=== PATIENT | male | born 1975 | race Caucasian/White ===

== ENCOUNTER 2016-11-24 13:53 | Inpatient (IN) | payer BC, OTHER ==
[2016-11-24 14:01] VITALS: BMI 24.4
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
[2016-11-24] MEDS ORDERED: LABETALOL HCL 5 MG/1 ML (100MG/20 ML VIAL) IVPUSH ONE (15:29)
[2016-11-24] MEDS ORDERED: HEPARIN NA (PORCINE) 5,000 UNITS/ML 1ML VIAL ONE ×2 (15:34→19:37)
[2016-11-24] MEDS ORDERED: LIDOCAINE HCL 1%, 10 MG/ML (20ML VIAL) ONE (15:34)
[2016-11-24 15:46] LABS: BASOPHIL 0.7 % (0-2.0); EOSINOPHIL 0.9 % (0-4.5); MCH 26.5 pg (25.7-33.7); MCHC 31.4 g/dl (32.0-35.9); MEAN CELL VOLUME 84.3 fl (80-96); MEAN PLT VOLUME 8.7 fl (7.5-11.1); NEUTROPHILS 66.4 % (42.8-82.8); PLATELET COUNT 272 K/MM3 (134-434); RDW 14.5 % (11.9-15.9); WHITE BLOOD COUNT 11.2 K/mm3 (4.0-10.0)
[2016-11-24 15:58] LABS: INR 1.04 (0.82-1.09); PROTHROMBIN TIME (PATIENT) 11.5 SEC (9.98-11.88)
[2016-11-24 16:09] LABS: ALBUMIN 3.7 g/dl (3.4-5.0); BILIRUBIN,TOTAL 0.6 mg/dL (0.2-1.0); CALCIUM 8.6 mg/dL (8.5-10.1); TOT PROT 7.9 g/dl (6.4-8.2)
[2016-11-24 16:31] LABS: CREATININE 13.2 mg/dL (0.7-1.3)
[2016-11-24] MEDS ORDERED: MIDAZOLAM HCL 2 MG/2 ML SINGLE DOSE VIAL ONE ×3 (17:23→18:00)
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
[2016-11-24] MEDS ORDERED: PROPOFOL 20 ML ONE (17:54)
[2016-11-24] MEDS ORDERED: methylPREDNISolone NA SUCC 125 MG/2 ML VIAL ONE (17:56)
--- NOTE | 2016-11-24 19:29 | PN ---
Progress Note (short form) - Note Progress Note: i was called by ER dr Doss earlier that pt is in ER and he needs vascular sx; I came to the hospital from my office around 6 pm but pt was already in OR; I returned to postop around 7.30 but pt still in OR. D/w staff to page me when he comes out of OR.
[2016-11-24] MEDS ORDERED: VASOPRESSIN 20 UNITS/ML VIAL IV ONE (19:32)
[2016-11-24] MEDS ORDERED: NITROGLYCERIN 50 MG/10 ML VIAL IVPB ONE (19:57)
[2016-11-24] MEDS ORDERED: ACETAMINOPHEN 325 MG TABLET (FP) PO PRN (20:16)
[2016-11-24] MEDS ORDERED: IBUPROFEN 600 MG TABLET (FP) PO PRN (20:20)
--- NOTE | 2016-11-24 20:23 | OP ---
Operative Note - Note: Operative Date: 11/24/16 Pre-Operative Diagnosis: Ischemic left arm Operation: Open thrombectomy of brachial artery. Angiogram and angioplasty of brachial artery Findings: Dilated brachial artery filled with organized thrombus Stenosis of brachial artery bypass Patent radial artery to hand Post-Operative Diagnosis: Same as Pre-op Surgeon: Dimitry Angelo Hydrodynamicist: Lesly Tamayo Anesthesiologist/SUPPOSITORY MOLDING MACHINE OPERATOR: Jose Roberto Dyer Anesthesia: General Estimated Blood Loss (mls): 100
[2016-11-24] MEDS ORDERED: MINOXIDIL 10 MG TABLET PO SCH (20:30)
[2016-11-24] MEDS ORDERED: DEXTROSE 5%-0.45% SALINE 1,000 ML IV SCH (20:30)
[2016-11-24] MEDS ORDERED: ONDANSETRON 4 MG/2 ML VIAL IVPUSH PRN (20:32)
[2016-11-24] MEDS ORDERED: SODIUM CHLORIDE 1,000 ML IV SCH (20:45)
[2016-11-24] MEDS ORDERED: oxyCODONE HCL 5 MG TABLET PO ONE (21:42)
[2016-11-24] MEDS ORDERED: LOSARTAN POTASSIUM 50 MG TABLET (FP) PO SCH (23:15)
[2016-11-24] MEDS ORDERED: LABETALOL HCL 200 MG TABLET (FP) PO SCH (23:30)
[2016-11-24] MEDS ORDERED: HEPARIN NA (PORCINE) 5,000 UNITS/ML 1ML VIAL IVPUSH ONE (23:36)
[2016-11-24] MEDS ORDERED: HEPARIN NA (PORCINE) 5,000 UNITS/ML 1ML VIAL IVPUSH PRN ×2 (23:36)
[2016-11-24] MEDS ORDERED: HEPARIN INFUSION - 500 ML IV SCH (23:45)
[2016-11-25] MEDS: SEVELAMER CARBONATE 800 MG TAB (FP) PO SCH ×3 (07:59→17:29)
--- NOTE | 2016-11-25 08:17 | PN ---
Progress Note (short form) - Note Progress Note: POD 1 Mild pain Wound dry hand warm, no weakness On IV Heparin Start Eliquis before discharge Discussed need for new brachial bypass to be scheduled in next month. Problem List - Problems (1) Ischemia of left upper extremity Code(s): I99.8 - OTHER DISORDER OF CIRCULATORY SYSTEM (2) ESRD (end stage renal disease) Code(s): N18.6 - END STAGE RENAL DISEASE
--- NOTE | 2016-11-25 09:10 | OP ---
DATE OF OPERATION: 11/24/2016 SURGEON: Dimitry Angelo MD GIS INSTRUCTOR: STEPHANIE Tamayo PROCEDURES: Open thrombectomy left brachial artery. Angiogram left brachial artery. Angioplasty left brachial artery. Retrograde cannulation left radial artery with ultrasound guidance PREOPERATIVE DIAGNOSIS: Ischemic left hand with thrombosed brachial artery bypass. POSTOPERATIVE DIAGNOSIS: Ischemic left hand with thrombosed brachial artery bypass. ANESTHESIA: General. ANESTHESIOLOGIST: Jose Roberto Dyer MD OPERATIVE FINDINGS: There was severe ectasia and dilatation of the left brachial artery extending down to the takeoff of the bypass graft to the radial and ulnar arteries. The bypass graft was occluded. There was reconstitution of the junction of the radial and ulnar arteries in the forearm with runoff to both vessels. OPERATIVE PROCEDURE: Following routine patient identification, with site and side verification, general anesthesia was induced. The left arm was prepped with ChloraPrep. Xylocaine was infiltrated in the skin over the dilated brachial artery in the mid upper arm. A transverse incision was made and carried down through the subcutaneous tissues using cautery for hemostasis. The artery was sharply mobilized and encircled with vessel loops. The patient was systemically heparinized. Transverse arteriotomy was made after placing clamps proximally and distally. A number 5 Garfield catheter was then used to perform thrombectomy of the distal brachial artery, with retrieval of a large amount of organized the thrombus. A 7-[place] sheath was placed into the vessel and attempt made to pass a wire through the proximal anastomosis into the vein graft. This was not feasible. Duplex imaging was used to identify the radial artery proximal to the wrist, and a micropuncture needle advanced into the artery under direct ultrasound guidance. A micropuncture wire was advanced proximally in the radial artery and then the inner cannula of the 5-[place] sheath passed over the wire. A V18 wire was then passed proximally and a Quick-Cross catheter used for support. The wire was passed proximally through the anastomosis into the vein graft and into the brachial artery, wherein it was retrieved through the arteriotomy. The catheter was then passed prograde over the wire and the wire was exchanged and passed distally into the forearm and the catheter removed from the wrist. Pressure was applied until bleeding ceased. Using the wire access, 3-mm and 4-mm angioplasty balloons were used to dilate the vein graft and restore patency. Additional thrombectomy was then performed to remove residual clot from the area. Repeat imaging showed patent proximal and distal anastomoses with runoff to the radial artery. The arteriotomy was then closed with a running suture of 6-0 Prolene. Clamps were removed. A micropuncture needle was then used to access the brachial artery distal to the arteriotomy site, and a 5-[place] catheter placed over the wire. Angiography was then performed to document patency of the bypass graft. There appeared to be spasm in the proximal radial artery and no visualization of the ulnar artery. Nitroglycerin 200 mcg was injected into the artery and this helped to reduce the spasm. There was good distal flow in the radial artery, with an intact palmar arch and retrograde filling of the ulnar artery. The needle was removed from the vessel and pressure applied until bleeding ceased. The surgical wound was closed with interrupted suture of 3-0 Vicryl and skin korin. A sterile dressing was applied, and the patient was taken to the recovery room, where there was a strong Doppler signal in both the radial and ulnar arteries. Huber [id number]
[2016-11-25] MEDS ORDERED: ENOXAPARIN NA (PORCINE) 80 MG/0.8 ML DISP.SYRIN SQ SCH (10:00)
[2016-11-25] MEDS ORDERED: CHOLECALCIFEROL (VITAMIN D3) 1,000 UNIT TABLET (FP) PO SCH (10:00)
[2016-11-25] MEDS ORDERED: APIXABAN 5 MG TABLET PO SCH (10:00)
[2016-11-25] MEDS ORDERED: RANITIDINE HCL 150 MG TABLET (FP) PO SCH (10:15)
[2016-11-25] MEDS ORDERED: PARICALCITOL 5 MCG/ML VIAL IVPUSH ONE (11:20)
[2016-11-25] MEDS ORDERED: HEPARIN NA (PORCINE) 5,000 UNITS/ML 1ML VIAL IVPUSH ONE (11:20)
--- NOTE | 2016-11-25 11:23 | EKG ---
Test Reason : Blood Pressure : / mmHG Vent. Rate : 069 BPM Atrial Rate : 069 BPM P-R Int : 156 ms QRS Dur : 090 ms QT Int : 430 ms P-R-T Axes : 052 057 054 degrees QTc Int : 460 ms NORMAL SINUS RHYTHM POSSIBLE LEFT ATRIAL ENLARGEMENT NONSPECIFIC ST AND T WAVE ABNORMALITY PROLONGED QT ABNORMAL ECG WHEN COMPARED WITH ECG OF 02-SEP-2015 12:14, NO SIGNIFICANT CHANGE WAS FOUND Confirmed by MANUELA CARROLL MD ([id number]) on 11/25/2016 11:23:09 AM Referred By: Confirmed By:MANUELA CARROLL MD
--- NOTE | 2016-11-25 11:29 | CONSULT ---
Consult - text type - Consultation Consultation Note: Renal Consult for ESRD on HD This is a 41 year old Gentleman with PMhx of ESRD on HD with prior renal transplant in 2006, Hypertension, GERD who presented from home with complaints of left arm pain and found to have occlusion of his left brachial artery bypass now s/p thrombectomy by Vascular Sx. Pt has prior AVF on left arm that was complicated by anuerysm formation that required a bypass. Pt currently gets dialysis via right forarm AVF. Pt complains of mild pain at the AVF site. No sob , chest pain, abd pain, N/V/D. Last dialysis was Monday. PMhx: as above Allergies: NKDA Family hx: NC Social Hx: No T/A/D ROS: as per HPI, all other pertinent ros negative Home Meds: Medication Instructions Recorded Minoxidil [Loniten -] 10 mg PO ASDIR 12/15/11 Sevelamer Carbonate [Renvela -] 3 tab PO TID 02/03/15 Acetaminophen [Tylenol] 650 mg PO Q4H PRN 07/06/15 Losartan Potassium [Cozaar -] 50 mg PO ASDIR 07/29/15 Labetalol HCl [Normodyne -] 300 mg PO ASDIR 09/02/15 Cholecalciferol (Vitamin D3) 1,000 unit PO DAILY 04/19/16 [Vitamin D] Apixaban [Eliquis] 5 mg PO BID #60 tablet 11/25/16 Vital Signs Temperature 98.3 F 11/25/16 09:00 Pulse Rate 66 11/25/16 09:00 Respiratory Rate 17 11/25/16 09:00 Blood Pressure 151/72 11/25/16 09:00 O2 Sat by Pulse Oximetry (%) 100 11/24/16 22:00 Intake & Output 11/22/16 11/23/16 11/24/16 11/25/16 23:59 23:59 23:59 23:59 Intake Total 300 Output Total 0 Balance 300 Weight 175 lb 181 lb 1 oz Gen: NAD, awake and alert HEENT: NC/AT, MMM, No JVD CVS: RRR, No M/R Lungs: CTA, no rales or wheeze Abd: soft NT/ND Ext: Left upper arm with dressing, faint pulse distally. Right forearm AVF + thrill and bruit. Neuro: AAOx3, no focal defects CBC, BMP 11/24/16 15:05 11/24/16 15:05 Current Medications Acetaminophen (Tylenol -) 650 mg PO Q4H PRN PRN Reason: PAIN OR FEVER Last Admin: 11/25/16 07:59 Dose: 650 mg Apixaban (Eliquis -) 5 mg PO BID [facility] Cholecalciferol (Vitamin D3 -) 1,000 unit PO DAILY [facility] Fentanyl (Sublimaze Injection -) 50 mcg IVPUSH [id number] PRN PRN Reason: PAIN Stop: 11/27/16 20:33 Last Admin: 11/24/16 21:35 Dose: 50 mcg Heparin Sodium (Porcine) (Heparin -) 2,500 unit IVPUSH ONCE ONE Stop: 11/25/16 11:21 Labetalol HCl (Normodyne -) 300 mg PO SuTuThSa@1000,2200 [facility] Last Admin: 11/24/16 23:21 Dose: 300 mg Losartan Potassium (Cozaar -) 50 mg PO SuTuThSa@1000 [facility] Last Admin: 11/24/16 23:21 Dose: 50 mg Minoxidil (Loniten -) 10 mg PO ASDIR [facility] Paricalcitol (Zemplar -) 2 mcg IVPUSH ONCE ONE Stop: 11/25/16 11:21 Ranitidine HCl (Zantac -) 150 mg PO BID [facility] Last Admin: 11/25/16 10:16 Dose: 150 mg Sevelamer Carbonate (Renvela -) 2,400 mg PO TIDCM [facility] Last Admin: 11/25/16 07:59 Dose: 2,400 mg A/P 41 year old Gentleman with PMhx of ESRD on HD with prior renal transplant in 2006, Hypertension, GERD who presented from home with complaints of left arm pain and found to have occlusion of his left brachial artery bypass now s/p thrombectomy by Vascular Sx. #Left Bracihial artery bypass thrombosis s/p thrombectomy by Vascular Sx on Eliquis pain control PRN #ESRD on HD for dialysis today: 4hrs, 2k bath with UF to dry weight dose all meds for intermittent HD #Hypertension BP acceptable Continue Labetalol, Losartan, Minoxidil #Renal Osteodystrophy Continue Renvela TID with meals Thank you Will follow Noman Pulliam DO
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
--- NOTE | 2016-11-25 12:44 | DS ---
Physical Examination Vital Signs: Vital Signs Temperature 98.3 F 11/25/16 09:00 Pulse Rate 66 11/25/16 09:00 Respiratory Rate 17 11/25/16 09:00 Blood Pressure 151/72 11/25/16 09:00 O2 Sat by Pulse Oximetry (%) 100 11/24/16 22:00 Findings/Remarks: in bed s/p LUE surgery; per pt and staff was cleared by vascular sx to be DC home after HD; d/w pt DC instructions see H&P from today also Constitutional: Yes: No Distress, Calm Eyes: Yes: Conjunctiva Clear HENT: Yes: Atraumatic Neck: Yes: Supple Cardiovascular: Yes: Regular Rate and Rhythm Respiratory: Yes: CTA Bilaterally Gastrointestinal: Yes: Soft. No: Distention, Tenderness Musculoskeletal: No: Joint Stiffness, Joint Swelling Extremities: No: Cold, Cool Edema: No Peripheral Pulses WNL: Yes Integumentary: No: Pressure Ulcer, Venous Stasis Changes Neurological: Yes: WNL, Alert, Oriented ...Motor Strength: WNL Psychiatric: Yes: WNL, Alert, Oriented. No: Agitated Discharge Summary Reason For Visit: ANEURYSM OF ARTERIOVENOUS FISTULA Current Active Problems Aneurysm of arteriovenous fistula (Acute) ESRD (end stage renal disease) (Acute) Ischemia of left upper extremity (Acute) Procedures: Principal: LUE AVF thrombosis s/p surgery Other Procedures: eliquis per surgery;. HD per renal;. BP control Hospital Course: improved with above DC home, f/u as advised; d.w pt and staff; remove LEJ line and make sure no local bleed before DC Condition: Stable - Instructions Diet, Activity, Other Instructions: Remove bandage Monday and wash with soap and water. f/u PCP and vascular suregry dr Angelo in 1-2 weeks HD per renal RTER if recurrent sx avoid local trauma or rough playing with his children (pt said he was wrestling with his son before his AVF thrombosed) cardiology f/u outpt nonspecific T waves changes on EKG (asymptomatic, no CP/SOB /MARTIN currently) d/w pt and staff, scripts ordered Referrals: Hany Coulter MD [Primary Care Provider] - Dimitry Angelo MD [Staff Physician] - 2 Weeks Disposition: HOME - Home Medications Comprehensive Discharge Medication List: Ambulatory Orders Minoxidil [Loniten -] 10 mg PO ASDIR 12/15/11 Sevelamer Carbonate [Renvela -] 3 tab PO TID 02/03/15 Acetaminophen [Tylenol] 650 mg PO Q4H PRN 07/06/15 Losartan Potassium [Cozaar -] 50 mg PO ASDIR 07/29/15 Cholecalciferol (Vitamin D3) [Vitamin D3] 1,000 unit PO DAILY 04/19/16 Apixaban [Eliquis -] 5 mg PO BID #0 tablet 11/25/16 Apixaban [Eliquis] 5 mg PO BID #60 tablet 11/25/16 Labetalol HCl [Normodyne -] 300 mg PO ASDIR #60 tablet 11/25/16 Ranitidine [Zantac -] 150 mg PO BID tablet 11/25/16
--- NOTE | 2016-11-25 12:47 | PN ---
Progress Note (short form) - Note Progress Note: Anesthesia postop note 41 y/o M s/p GA for open thrombectomy, upper extremity POD#1, vss, aaox3, to be discharged today No anesthesia complications.
[2016-11-25 13:54] LABS: CALCIUM 8.2 mg/dL (8.5-10.1)
[2016-11-25 14:24] LABS: CREATININE 15.1 mg/dL (0.7-1.3)
[2016-11-25 18:33] VITALS: BP 142/70; PULSE 75; TEMP 98.2
[2016-11-26 06:06] LABS: HEP B SURFACE AB Reactive (.)
--- NOTE | 2016-11-30 13:33 | SURG ---
Surgery Candle Making Supervisor Note Candle Making Supervisor: Lesly Tamayo PA-C Date of Service: 11/24/16 Diagnosis: Ischemic left arm Procedure: Open thrombectomy of brachial artery. Angiogram and angioplasty of brachial artery I was present for the entirety of the operative procedure. For further detail, please refer to operative report. Visit type - Case Type Case Type: ED Admission - New patient This patient is new to me today: Yes Date on this admission: 11/24/16
== END 2016-11-25 18:25 | disposition home or self-care (01) | DRG 252 ==
LOC: JER 13:53 → JASUSAT 16:41 → J6S 22:27 → JASUSAT 22:28 → J6S 22:28
PROVIDERS: ADMIT Internal Medicine; ATTEND Surgery
PROC: 03780ZZ Dilation of Left Brachial Artery, Open Approach (ICD-10-PCS; 2016-11-24)
PROC: B31JYZZ Fluoroscopy of Left Upper Extremity Arteries using Other Contrast (ICD-10-PCS; 2016-11-24)
PROC: 03C80ZZ Extirpation of Matter from Left Brachial Artery, Open Approach (ICD-10-PCS; principal; 2016-11-24 17:00)
PROC: 5A1D60Z (ICD-10-PCS; 2016-11-25)
DX: T82.868A Thrombosis due to vascular prosthetic devices, implants and grafts, initial encounter (principal); N18.6 End stage renal disease; I12.0 Hypertensive chronic kidney disease with stage 5 chronic kidney disease or end stage renal disease; Y83.9 Surgical procedure, unspecified as the cause of abnormal reaction of the patient, or of later complication, without mention of misadventure at the time of the procedure; Z99.2 Dependence on renal dialysis; K21.9 Gastro-esophageal reflux disease without esophagitis; I99.8 Other disorder of circulatory system; N25.0 Renal osteodystrophy
CPT/HCPCS: 36415; 71010-TC; 76001-TC; 80048; 80053; 85025; 85610; 85730; 86704; 86706; 86708; 86803; 86850; 86900; 86901; 87340; 93005; 93010; 94760; 99285-25; J1644

== ENCOUNTER 2017-08-25 15:27 | Emergency (ER) | payer BC, OTHER ==
[2017-08-25 15:35] VITALS: BMI 25.1
[2017-08-25] MEDS ORDERED: METOCLOPRAMIDE HCL INJECTION 10 MG/2 ML VIAL IVPUSH ONE (17:00)
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
[2017-08-25] MEDS ORDERED: METOCLOPRAMIDE HCL INJECTION 10 MG/2 ML VIAL ONE (17:35)
[2017-08-25 17:57] LABS: BASOPHIL 0.9 % (0-2.0); EOSINOPHIL 1.1 % (0-4.5); MCH 27.6 pg (25.7-33.7); MCHC 32.8 g/dl (32.0-35.9); MEAN CELL VOLUME 84.3 fl (80-96); MEAN PLT VOLUME 9.7 fl (7.5-11.1); PLATELET COUNT 288 K/MM3 (134-434); RDW 14.7 % (11.9-15.9); WHITE BLOOD COUNT 12.9 K/mm3 (4.0-10.0)
[2017-08-25] MEDS ORDERED: ACETAMINOPHEN/CAFFEINE/BUTALBITAL 1 TAB PO ONE (17:57)
[2017-08-25] MEDS ORDERED: ACETAMINOPHEN/CAFFEINE/BUTALBITAL 1 TAB ONE (18:10)
[2017-08-25 18:21] LABS: ALBUMIN 3.8 g/dl (3.4-5.0); ANION GAP 15 (8-16); CALCIUM 9.4 mg/dL (8.5-10.1); CO2 22 mmol/L (21-32); GLUCOSE,RANDOM 88 mg/dL (74-106); MAGNESIUM 2.2 mg/dL (1.8-2.4); SGOT/AST 22 U/L (15-37); SGPT/ALT 23 U/L (12-78)
[2017-08-25 18:28] LABS: ALK PHOS 175 U/L (45-117); BILIRUBIN,TOTAL 0.7 mg/dL (0.2-1.0); TOT PROT 8.7 g/dl (6.4-8.2)
[2017-08-25 18:31] LABS: INR 1.12 (0.82-1.09); PROTHROMBIN TIME (PATIENT) 12.3 SEC (9.98-11.88)
[2017-08-25 18:33] LABS: ACTIVATED PTT 34.5 SECONDS (26.9-34.4)
[2017-08-25 18:47] LABS: CREATININE 8.4 mg/dL (0.7-1.3)
--- NOTE | 2017-08-25 21:20 | PDOC ---
*Physical Exam - Vital Signs Last Vital Signs Temp Pulse Resp BP Pulse Ox 98.2 F 78 18 109/41 98 08/25/17 18:48 08/25/17 18:48 08/25/17 18:48 08/25/17 18:48 08/25/17 18:48 <Mariana Maki - Last Filed: 08/25/17 21:31> - Vital Signs Last Vital Signs Temp Pulse Resp BP Pulse Ox 98.2 F 78 18 109/41 98 08/25/17 18:48 08/25/17 18:48 08/25/17 18:48 08/25/17 18:48 08/25/17 18:48 <ReshmadionicioAshtyn - Last Filed: 08/25/17 21:46> ED Treatment Course - LABORATORY CBC & Chemistry Diagram: 08/25/17 17:50 08/25/17 17:50 - ADDITIONAL ORDERS Additional order review: Laboratory Results 08/25/17 08/25/17 17:50 17:50 PT with INR 12.30 H INR 1.12 PTT (Actin FS) 34.5 H Sodium 135 L Potassium 4.0 Chloride 98 Carbon Dioxide 22 Anion Gap 15 BUN 19 H D Creatinine 8.4 H* Creat Clearance w eGFR 7.06 Random Glucose 88 Calcium 9.4 Magnesium 2.2 D Total Bilirubin 0.7 AST 22 ALT 23 Alkaline Phosphatase 175 H Total Protein 8.7 H Albumin 3.8 08/25/17 17:50 RBC 5.08 MCV 84.3 MCHC 32.8 RDW 14.7 MPV 9.7 Neutrophils % 74.0 Lymphocytes % 13.0 Monocytes % 11.0 H Eosinophils % 1.1 Basophils % 0.9 - Medications Given in the ED: ED Medications Discontinued Medications Generic Name Dose Route Start Last Admin Trade Name Freq PRN Reason Stop Dose Admin Acetaminophen/Butalbital/Caffeine 1 tablet 08/25/17 17:57 08/25/17 18:13 Fioricet - PO 08/25/17 17:58 1 tablet ONCE ONE Administration Diphenhydramine HCl 12.5 mg 08/25/17 17:00 08/25/17 17:34 Benadryl Injection - IVPUSH 08/25/17 17:01 12.5 mg ONCE ONE Administration Metoclopramide HCl 10 mg 08/25/17 17:00 08/25/17 17:34 Reglan Injection - IVPUSH 08/25/17 17:01 10 mg ONCE ONE Administration <Mariana Maki - Last Filed: 08/25/17 21:31> - LABORATORY CBC & Chemistry Diagram: 08/25/17 17:50 08/25/17 17:50 - ADDITIONAL ORDERS Additional order review: Laboratory Results 08/25/17 10 17:50 17:50 PT with INR 12.30 H INR 1.12 PTT (Actin FS) 34.5 H Sodium 135 L Potassium 4.0 Chloride 98 Carbon Dioxide 22 Anion Gap 15 BUN 19 H D Creatinine 8.4 H* Creat Clearance w eGFR 7.06 Random Glucose 88 Calcium 9.4 Magnesium 2.2 D Total Bilirubin 0.7 AST 22 ALT 23 Alkaline Phosphatase 175 H Total Protein 8.7 H Albumin 3.8 08/25/17 17:50 RBC 5.08 MCV 84.3 MCHC 32.8 RDW 14.7 MPV 9.7 Neutrophils % 74.0 Lymphocytes % 13.0 Monocytes % 11.0 H Eosinophils % 1.1 Basophils % 0.9 - Medications Given in the ED: ED Medications Discontinued Medications Generic Name Dose Route Start Last Admin Trade Name Freq PRN Reason Stop Dose Admin Acetaminophen/Butalbital/Caffeine 1 tablet 08/25/17 17:57 08/25/17 18:13 Fioricet - PO 08/25/17 17:58 1 tablet ONCE ONE Administration Diphenhydramine HCl 12.5 mg 08/25/17 17:00 08/25/17 17:34 Benadryl Injection - IVPUSH 08/25/17 17:01 12.5 mg ONCE ONE Administration Metoclopramide HCl 10 mg 08/25/17 17:00 08/25/17 17:34 Reglan Injection - IVPUSH 08/25/17 17:01 10 mg ONCE ONE Administration <Ashtyn Ruiz - Last Filed: 08/25/17 21:46> Medical Decision Making - Medical Decision Making 08/25/17 21:20 Dr. Hany Coulter was paged and notified via phone service. 08/25/17 21:23 Dr. Greco was called and case was discussed with Dr. Ruiz. [facility] will be called for the pt. [facility] was called at 21:32, Doctor carton stapler for Neurosurgery will give us a call back. <Mariana Maki - Last Filed: 08/25/17 21:31> - Medical Decision Making 08/25/17 21:17 42 yo male with h/o migraines, esrd here wtih headache today at dialysis which he attributed to his migraines. pt signed out to me by dr rider at 7 pm awaiting MRI. MRI c/w ct finding of a 7.4 patent anuerysm anterior [place], no signs of bleed on ct head. d/w pt regarding findings. pt unwilling to have LP. told will have to follow up with a vascular surgeon. paged dr. Greco, dr coulter. overall states headache is improved. 08/25/17 21:45 d/w carton stapler nuerosurgery, pt will require managment of anuerysm. uncapable at [facility]. recommend transfer. d/w carton stapler nuerosurgeon at [facility] Dr. Joseph, will have pt transferred to ED there for further evaluation and or management. d/w dr coulter, who is aware of plan of care. <Ashtyn Ruiz - Last Filed: 08/25/17 21:46> *DC/Admit/Observation/Transfer <Mariana Maki - Last Filed: 08/25/17 21:31> <Ashtyn Ruiz - Last Filed: 08/25/17 21:46> Diagnosis at time of Disposition: Headache, Cerebral aneurysm - Discharge Dispostion Disposition: TRANSFER ACUTE CARE/OTHER HOSP - Referrals Referrals: Hany Coulter MD [Primary Care Provider] - - Patient Instructions - Post Discharge Activity
[2017-08-25 22:33] VITALS: BP 113/83; PULSE 82; TEMP 98.1
--- NOTE | 2017-09-01 09:22 | EKG ---
Test Reason : Blood Pressure : / mmHG Vent. Rate : 069 BPM Atrial Rate : 069 BPM P-R Int : 158 ms QRS Dur : 090 ms QT Int : 436 ms P-R-T Axes : 066 066 072 degrees QTc Int : 467 ms NORMAL SINUS RHYTHM POSSIBLE LEFT ATRIAL ENLARGEMENT LEFT VENTRICULAR HYPERTROPHY ABNORMAL ECG WHEN COMPARED WITH ECG OF 17-JAN-2017 10:28, NO SIGNIFICANT CHANGE WAS FOUND Confirmed by MANUELA CARROLL MD ([id number]) on 09/01/2017 9:22:05 AM Referred By: Confirmed By:MANUELA CARROLL MD
== END 2017-08-25 22:30 | disposition short-term general hospital (02) ==
LOC: JER 15:27
PROC: 3E033GC Introduction of Other Therapeutic Substance into Peripheral Vein, Percutaneous Approach (ICD-10-PCS; principal; 2017-08-25)
DX: I67.1 Cerebral aneurysm, nonruptured (principal); R51 Headache; I10 Essential (primary) hypertension; I12.0 Hypertensive chronic kidney disease with stage 5 chronic kidney disease or end stage renal disease; N18.6 End stage renal disease; N17.9 Acute kidney failure, unspecified; Z99.2 Dependence on renal dialysis
CPT/HCPCS: 36415; 70450-TC; 70544-TC; 71010-TC; 80053; 83735; 85025; 85610; 85730; 93005; 93010; 99285-25

== ENCOUNTER 2017-12-22 11:03 | Emergency (ER) | payer OTHER, BC ==
[2017-12-22 11:19] VITALS: BP 109/87; PULSE 102; TEMP 98.2; BMI 27.2
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
[2017-12-22 13:41] LABS: BASO % 0.7 % (0-2.0); EOS % 1.2 % (0-4.5); HEMATOCRIT 42.5 % (35.4-49); HEMOGLOBIN 13.7 GM/dL (11.7-16.9); LYMPH % 12.8 % (8-40); MCH 27.6 pg (25.7-33.7); MCHC 32.1 g/dl (32.0-35.9); MEAN CELL VOLUME 85.9 fl (80-96); MEAN PLT VOLUME 8.6 fl (7.5-11.1); MONO % 13.5 % (3.8-10.2); NEUT % 71.8 % (42.8-82.8); PLATELET COUNT 215 K/MM3 (134-434); RBC 4.95 M/mm3 (4.00-5.60); RDW 14.6 % (11.9-15.9); WHITE BLOOD COUNT 10.2 K/mm3 (4.0-10.0)
[2017-12-22 13:58] LABS: INR 0.97 (0.82-1.09)
--- NOTE | 2017-12-22 14:22 | PDOC ---
Attending Attestation - HPI HPI: 12/22/17 17:33 The patient is a 42 year old male with a significant PMH of ESRD (dialysis on mon, mon, and mon) and prior 7mm Acomm saccular aneurysm s/p recent coiling and stenting procedure this Monday (now on ASA 325 daily and Plavix) who presents to the emergency department with right hip pain s/p a mechanical slip and fall on black ice today. The patient states he was able to walk to the dialysis center. The patient reports that after sitting in dialysis he noticed swelling to the right hip and is now experiencing dull pain. The patient states he can bear weight on the leg and is able to ambulate with his cane. Denies head strike , LOC, or other injuries. The patient denies palpitations, chest pain, shortness of breath, headache and dizziness. Denies fever, chills, nausea, vomit, diarrhea and constipation. Denies dysuria, frequency, urgency and hematuria. Allergies: NKA Past surgical history: None reported. Social history: No reported alcohol, drug, or cigarette use. PCP: Dr. Coulter - Physicial Exam PE: 12/22/17 17:34 GENERAL: Awake, alert, and fully oriented, in no acute distress HEAD: No signs of trauma EYES: PERRLA, EOMI, sclera anicteric, conjunctiva clear ENT: Auricles normal inspection, hearing grossly normal, nares patent, oropharynx clear without exudates. Moist mucosa NECK: Normal ROM, supple, no lymphadenopathy, JVD, or masses LUNGS: Breath sounds equal, clear to auscultation bilaterally. No wheezes, and no crackles HEART: Regular rate and rhythm, normal S1 and S2, no murmurs, rubs or gallops ABDOMEN: Soft, nontender, normoactive bowel sounds. No guarding, no rebound. No masses EXTREMITIES: Normal range of motion. No clubbing or cyanosis. No cords, erythema, or tenderness. R hip with mild edema to lateral aspect but no bruising. 2+ peripheral pulses. Pelvis stable. BACK: No midline spinal tenderness in cervical/thoracic/lumbar region NEUROLOGICAL: Normal speech, cranial nerves intact, negative pronator drift, 5/ 5 strength in all 4 extremities, normal sensation to light touch in all 4 extremities, normal cerebellar exam, normal gait, normal reflexes and tone SKIN: Warm, Dry, normal turgor, no rashes or lesions noted. <Madie Smalls - Last Filed: 12/22/17 17:33> - Resident Resident Name: Yuki Kelly - ED Attending Attestation I have performed the following: I have examined & evaluated the patient, The case was reviewed & discussed with the resident, I agree w/resident's findings & plan, Exceptions are as noted - Medical Decision Making 12/22/17 22:10 42-year-old male presents with right hip edema after falling. Vitals unremarkable. Exam with mild right hip edema but no deformities and no leg length discrepancies or rotation. Patient is neurovascularly intact in the lower extremities. Likely has hematoma or soft tissue swelling due to the trauma. CT scan was negative for acute fracture. Patient is ambulating in the emergency department with a steady gait. Patient DC with Ortho follow-up. I discussed the physical exam findings, ancillary test results and final diagnoses with the patient. I answered all of the patient's questions. The patient was satisfied with the care received and felt comfortable with the discharge plan and treatment plan. The patient will call their primary care physician within 24 hours to arrange follow-up and will return to the Emergency Department with any new, persistent or worsening symptoms. <Robyn Tolliver - Last Filed: 12/24/17 02:12>
[2017-12-22 14:49] LABS: ALBUMIN 4.2 g/dl (3.4-5.0); ALK PHOS 127 U/L (45-117); ANION GAP 14 (8-16); BILIRUBIN,TOTAL 0.3 mg/dL (0.2-1.0); BLOOD UREA NITROGEN 20 mg/dL (7-18); CALCIUM 8.8 mg/dL (8.5-10.1); CHLORIDE 96 mmol/L (98-107); CO2 22 mmol/L (21-32); CREATININE 7.2 mg/dL (0.7-1.3); GLUCOSE,RANDOM 134 mg/dL (74-106); POTASSIUM 3.6 mmol/L (3.5-5.1); SGOT/AST 32 U/L (15-37); SGPT/ALT 42 U/L (12-78); SODIUM 132 mmol/L (136-145); TOT PROT 8.4 g/dl (6.4-8.2)
== END 2017-12-22 15:52 | disposition home or self-care (01) ==
LOC: JER 11:03
DX: M25.551 Pain in right hip (principal); W00.0XXA Fall on same level due to ice and snow, initial encounter; Y93.89 Activity, other specified; Y92.410 Unspecified street and highway as the place of occurrence of the external cause; I12.0 Hypertensive chronic kidney disease with stage 5 chronic kidney disease or end stage renal disease; N18.6 End stage renal disease; Z99.2 Dependence on renal dialysis
CPT/HCPCS: 36415; 72192-TC; 80053; 85025; 85610; 99282-25

== ENCOUNTER 2018-12-09 10:42 | Emergency (ER) | payer OTHER, BC ==
[2018-12-09 10:46] VITALS: BP 143/95; PULSE 68; TEMP 97.6; BMI 26.5
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
== END 2018-12-09 11:40 | disposition home or self-care (01) ==
LOC: JERFT 10:42
DX: M25.551 Pain in right hip (principal); G89.29 Other chronic pain; Z91.81 History of falling; I12.0 Hypertensive chronic kidney disease with stage 5 chronic kidney disease or end stage renal disease; N18.6 End stage renal disease; N17.8 Other acute kidney failure; Z99.2 Dependence on renal dialysis; Z94.0 Kidney transplant status; Z86.79 Personal history of other diseases of the circulatory system
CPT/HCPCS: 99281-25

== ENCOUNTER 2019-01-02 07:51 | Emergency (ER) | payer OTHER, BC ==
[2019-01-02 08:04] VITALS: BP 157/112; PULSE 100; TEMP 100; BMI 26.4
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
[2019-01-02] MEDS ORDERED: SODIUM CHLORIDE 250 ML IV STA (08:46)
[2019-01-02 08:47] LABS: BASO % 1.1 % (0-2.0); EOS % 0.7 % (0-4.5); HEMATOCRIT 38.1 % (35.4-49); HEMOGLOBIN 12.9 GM/dL (11.7-16.9); LYMPH % 8.2 % (8-40); MCH 27.9 pg (25.7-33.7); MCHC 33.8 g/dl (32.0-35.9); MEAN CELL VOLUME 82.3 fl (80-96); MEAN PLT VOLUME 9.1 fl (7.5-11.1); MONO % 14.9 % (3.8-10.2); NEUT % 75.1 % (42.8-82.8); PLATELET COUNT 173 K/MM3 (134-434); RBC 4.63 M/mm3 (4.00-5.60); RDW 13.8 % (11.9-15.9); WHITE BLOOD COUNT 7.9 K/mm3 (4.0-10.0)
[2019-01-02 09:10] LABS: ALBUMIN 3.6 g/dl (3.4-5.0); ALK PHOS 109 U/L (45-117); ANION GAP 14 MMOL/L (8-16); BILIRUBIN,TOTAL 0.3 mg/dL (0.2-1); BLOOD UREA NITROGEN 60 mg/dL (7-18); CALCIUM 8.3 mg/dL (8.5-10.1); CHLORIDE 95 mmol/L (98-107); CO2 20 mmol/L (21-32); GLUCOSE,RANDOM 90 mg/dL (74-106); POTASSIUM 3.9 mmol/L (3.5-5.1); SGOT/AST 20 U/L (15-37); SGPT/ALT 19 U/L (13-61); SODIUM 129 mmol/L (136-145); TOT PROT 7.6 g/dl (6.4-8.2)
[2019-01-02 09:14] LABS: CREATININE 15.2 mg/dL (0.55-1.3)
[2019-01-02] MEDS ORDERED: OSELTAMIVIR PHOSPHATE 75 MG CAPSULE PO ONE (09:24)
[2019-01-02] MEDS ORDERED: LIDOCAINE 5% TOPICAL PATCH ONE (09:27)
[2019-01-02] MEDS ORDERED: OSELTAMIVIR PHOSPHATE 75 MG CAPSULE ONE (09:41)
[2019-01-02 11:29] LABS: ANISOCYTOSIS 1+; MACROCYTOSIS 0; PLATELET ESTIMATE NORMAL
--- NOTE | 2019-01-02 16:04 | EKG ---
Test Reason : Blood Pressure : / mmHG Vent. Rate : 095 BPM Atrial Rate : 095 BPM P-R Int : 150 ms QRS Dur : 080 ms QT Int : 360 ms P-R-T Axes : 072 073 078 degrees QTc Int : 452 ms NORMAL SINUS RHYTHM POSSIBLE LEFT ATRIAL ENLARGEMENT BORDERLINE ECG WHEN COMPARED WITH ECG OF 25-JUN-2018 11:39, VENT. RATE HAS INCREASED BY 32 BPM Confirmed by NAT CRAIN, SHRUTHI ([id number]) on 01/02/2019 4:03:29 PM Referred By: Confirmed By:SHRUTHI JOHNS MD
== END 2019-01-02 09:55 | disposition left against medical advice (07) ==
LOC: JER 07:51
PROC: 3E0337Z Introduction of Electrolytic and Water Balance Substance into Peripheral Vein, Percutaneous Approach (ICD-10-PCS; principal; 2019-01-02)
DX: I12.0 Hypertensive chronic kidney disease with stage 5 chronic kidney disease or end stage renal disease (principal); N18.6 End stage renal disease; Z99.2 Dependence on renal dialysis; I15.0 Renovascular hypertension; J09.X2 Influenza due to identified novel influenza A virus with other respiratory manifestations; E78.00 Pure hypercholesterolemia, unspecified
CPT/HCPCS: 36415; 71046-TC-FY; 80053; 83605; 85025; 87040; 87804; 93005; 93010; 96360; 99283-25

== ENCOUNTER 2019-01-09 13:04 | Emergency (ER) | payer OTHER, BC ==
[2019-01-09 13:11] VITALS: TEMP 98.2; BMI 25.9
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
[2019-01-09] MEDS ORDERED: ADENOSINE 6 MG/2 ML VIAL IVPUSH ONE (13:35)
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
[2019-01-09 14:37] VITALS: BP 138/98; PULSE 82
[2019-01-09 14:42] LABS: EOS % 6.1 % (0-4.5); HEMATOCRIT 36.6 % (35.4-49); HEMOGLOBIN 12.3 GM/dL (11.7-16.9); LYMPH % 17.1 % (8-40); MCH 28.5 pg (25.7-33.7); MCHC 33.7 g/dl (32.0-35.9); MEAN CELL VOLUME 84.7 fl (80-96); MEAN PLT VOLUME 9.7 fl (7.5-11.1); NEUT % 65.8 % (42.8-82.8); PLATELET COUNT 161 K/MM3 (134-434); RBC 4.32 M/mm3 (4.00-5.60); RDW 13.7 % (11.9-15.9); WHITE BLOOD COUNT 9.2 K/mm3 (4.0-10.0)
[2019-01-09 15:20] LABS: ALBUMIN 3.3 g/dl (3.4-5.0); ANION GAP 12 MMOL/L (8-16); BLOOD UREA NITROGEN 18 mg/dL (7-18); CALCIUM 7.8 mg/dL (8.5-10.1); CHLORIDE 106 mmol/L (98-107); CO2 20 mmol/L (21-32); GLUCOSE,RANDOM 78 mg/dL (74-106); POTASSIUM 3.8 mmol/L (3.5-5.1); SODIUM 138 mmol/L (136-145); TOT PROT 7.1 g/dl (6.4-8.2)
[2019-01-09 15:21] LABS: ALK PHOS 85 U/L (45-117); BILIRUBIN,TOTAL 0.3 mg/dL (0.2-1); SGOT/AST 18 U/L (15-37); SGPT/ALT 16 U/L (13-61)
[2019-01-09 15:24] LABS: CREATININE 7.4 mg/dL (0.55-1.3)
--- NOTE | 2019-01-10 02:32 | EKG ---
Test Reason : Blood Pressure : / mmHG Vent. Rate : 082 BPM Atrial Rate : 082 BPM P-R Int : 158 ms QRS Dur : 088 ms QT Int : 400 ms P-R-T Axes : 066 060 075 degrees QTc Int : 467 ms NORMAL SINUS RHYTHM LEFT ATRIAL ENLARGEMENT LEFT VENTRICULAR HYPERTROPHY NONSPECIFIC T WAVE ABNORMALITY PROLONGED QT ABNORMAL ECG WHEN COMPARED WITH ECG OF 02-JAN-2019 08:58, NONSPECIFIC T WAVE ABNORMALITY NOW EVIDENT IN ANTERIOR LEADS Confirmed by GENTRY GOODSON MD ([id number]) on 01/10/2019 2:32:09 AM Referred By: Confirmed By:GENTRY GOODSON MD
== END 2019-01-09 16:56 | disposition home or self-care (01) ==
LOC: JER 13:04
DX: R00.2 Palpitations (principal); Z87.891 Personal history of nicotine dependence; K21.9 Gastro-esophageal reflux disease without esophagitis; R01.1 Cardiac murmur, unspecified; Z99.2 Dependence on renal dialysis
CPT/HCPCS: 36415; 80053; 82550; 84484; 85025; 93005; 93010; 99284-25

== ENCOUNTER 2019-05-13 16:09 | Inpatient (IN) | payer OTHER, BC ==
--- NOTE | 2019-05-13 16:18 | PDOC ---
Rapid Medical Evaluation Chief Complaint: Pain Time Seen by Provider: 05/13/19 16:15 Medical Evaluation: Allergies Allergy/AdvReac Type Severity Reaction Status Date / Time Iodinated Contrast- Oral and Allergy Verified 05/13/19 16:13 IV Dye [Iodinated Contrast Media - Oral and] iodine Allergy Verified 05/13/19 16:13 morphine Allergy SEVERE Verified 05/13/19 16:13 Itching 05/13/19 16:15 I have performed a brief in-person evaluation of this patient. The patient presents with a chief complaint of: epigastric pain with bloody stools. Stools now black and tarry- took 1 bottle of PeptoBismol yesterday Pertinent physical exam findings: Normoactive BS. Abd SNTND. I have ordered the following: abdominal w/u The patient will proceed to the ED for further evaluation. 05/13/19 16:18 Discharge Disposition - Diagnosis Abdominal pain - Referrals - Patient Instructions - Post Discharge Activity
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
--- NOTE | 2019-05-13 16:54 | PDOC ---
Attending Attestation - Resident Resident Name: Amrik Cruz - ED Attending Attestation I have performed the following: I have examined & evaluated the patient, The case was reviewed & discussed with the resident, I agree w/resident's findings & plan, Exceptions are as noted - HPI HPI: 05/13/19 17:04 44y M hx of ESRD (MWF, sp dialysis today), sp kidney transplant, htn, presents today for complaint of 4 days of interimttent nonradiating, epigastric pain ( now since resolved), had some bpr (described as some blood at the end of his BM which was brown without any black/red mixed into stool) a few days ago, today he had an episode of soft non tarry black stool. Pt denies any dizzines, palpitations, n/v currently although he did have several episodes of nbnb vomiting this weekend that has since resolved. Pt did note he takes 325mg ASA daily and took 3 tablets of ASA for his back pain last week. pt has an appt scheduled with Dr. Mirza (GI) on June 10 PMD: Hany Coulter - Physicial Exam PE: 05/13/19 18:01 GENERAL: The patient is awake, alert, and fully oriented, Nontoxic - in no acute distress. HEAD: Normocephalic, atraumatic. LUNGS: Breath sounds equal, clear to auscultation bilaterally. No wheezes, no rhonchi, no rales. HEART: Regular rate and rhythm, normal S1 and S2 without murmur, rub or gallop. ABDOMEN: Soft, nontender, normoactive bowel sounds. No guarding, no rebound. No CVA tenderness EXTREMITIES: Normal range of motion, fistula in RUE with thrill NEUROLOGICAL: No facial assymetry, Normal speech, moving all 4 4xt spontaneously and symmetrically PSYCH: Normal mood, normal affect. SKIN: Warm, Dry, normal turgor, - Medical Decision Making 05/13/19 17:53 ddx - UGIB vs. maalox/bisthmuth effect will ck cbc, stool guaiac if positive will dw PMD, possible GI workup for uGIB Heart Score/ECG Review - ECG Impressions Comment:: 05/13/19 18:30 Twelve-lead EKG was performed and reviewed by me. There is normal sinus rhythm with a normal rate. rate of [address] changes sgugestive of acute ischemic
[2019-05-13] MEDS ORDERED: LACTATED RINGERS SOLUTION 1000 ML INFUS.BAG IV ONE (17:10)
[2019-05-13] MEDS ORDERED: MAG HYDROX/AL HYDROX/SIMETH 30 ML UNIT-DOSE CUP PO ONE (17:34)
[2019-05-13] MEDS ORDERED: LIDOCAINE VISCOUS 2% ORAL/TOP 20 ML UNIT-DOSE CUP MM ONE (17:34)
[2019-05-13] MEDS ORDERED: FAMOTIDINE 20 MG/50 ML IVPB 20 MG/50 ML MG IVPB ONE ×2 (17:34→17:57)
[2019-05-13 17:40] LABS: BASO % 0.7 % (0-2.0); EOS % 1.2 % (0-4.5); HEMATOCRIT 40.6 % (35.4-49); HEMOGLOBIN 13.5 GM/dL (11.7-16.9); LYMPH % 16.6 % (8-40); MCH 27.5 pg (25.7-33.7); MCHC 33.2 g/dl (32.0-35.9); MEAN CELL VOLUME 82.7 fl (80-96); MONO % 13.5 % (3.8-10.2); PLATELET COUNT 224 K/MM3 (134-434); RBC 4.91 M/mm3 (4.00-5.60); RDW 14.3 % (11.9-15.9); WHITE BLOOD COUNT 8.3 K/mm3 (4.0-10.0)
[2019-05-13 17:52] LABS: INR 1.12 (0.83-1.09); PROTHROMBIN TIME (PATIENT) 13.2 SEC (9.7-13.0)
[2019-05-13] MEDS ORDERED: LIDOCAINE VISCOUS 2% ORAL/TOP 20 ML UNIT-DOSE CUP ONE (17:57)
[2019-05-13] MEDS ORDERED: MAG HYDROX/AL HYDROX/SIMETH 30 ML UNIT-DOSE CUP ONE (17:57)
[2019-05-13] MEDS ORDERED: ACETAMINOPHEN 325 MG TABLET (FP) PO ONE (18:08)
[2019-05-13 18:23] LABS: ALBUMIN 3.6 g/dl (3.4-5.0); BILIRUBIN,TOTAL 0.3 mg/dL (0.2-1); BLOOD UREA NITROGEN 31.6 mg/dL (7-18); CALCIUM 9.4 mg/dL (8.5-10.1); TOT PROT 7.7 g/dl (6.4-8.2)
[2019-05-13] MEDS ORDERED: ACETAMINOPHEN 325 MG TABLET (FP) ONE (18:27)
[2019-05-13 18:52] LABS: CREATININE 10.7 mg/dL (0.55-1.3)
[2019-05-13] MEDS: PANTOPRAZOLE SODIUM 80 MG in SODIUM CHLORIDE 100 ML IVPB SCH (19:01)
[2019-05-13] MEDS ORDERED: oxyCODONE HCL 5 MG TABLET ONE (20:14)
[2019-05-13] MEDS ORDERED: oxyCODONE HCL 5 MG TABLET PO ONE (20:34)
[2019-05-13] MEDS ORDERED: LIDOCAINE 5% TOPICAL PATCH TP ONE (21:11)
[2019-05-13] MEDS ORDERED: LIDOCAINE 5% TOPICAL PATCH ONE (21:36)
[2019-05-13] MEDS: LIDOCAINE PATCH REMOVAL MC SCH (23:07)
[2019-05-14] MEDS: LABETALOL HCL 100 MG TABLET (FP) PO SCH ×3 (02:10→21:34)
[2019-05-14] MEDS ORDERED: oxyCODONE HCL 5 MG TABLET PO PRN (04:52)
[2019-05-14 05:53] VITALS: BMI 26.2
[2019-05-14] MEDS ORDERED: diphenhydrAMINE HCL 25 MG CAPSULE (FP) PO PRN ×2 (09:11→09:12)
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
--- NOTE | 2019-05-14 10:35 | EKG ---
Test Reason : Blood Pressure : / mmHG Vent. Rate : 093 BPM Atrial Rate : 093 BPM P-R Int : 156 ms QRS Dur : 088 ms QT Int : 360 ms P-R-T Axes : 070 074 071 degrees QTc Int : 447 ms NORMAL SINUS RHYTHM POSSIBLE LEFT ATRIAL ENLARGEMENT NONSPECIFIC T WAVE ABNORMALITY ABNORMAL ECG WHEN COMPARED WITH ECG OF 09-JAN-2019 13:09, NO SIGNIFICANT CHANGE WAS FOUND Confirmed by Tor Jimenez MD ([id number]) on 05/14/2019 10:35:08 AM Referred By: Confirmed By:Tor Jimenez MD
[2019-05-14] MEDS: PANTOPRAZOLE SODIUM 80 MG in SODIUM CHLORIDE 100 ML IVPB SCH ×2 (10:50→15:05)
[2019-05-14] MEDS: LOSARTAN POTASSIUM 25 MG TABLET PO SCH ×2 (10:50→21:33)
[2019-05-14 12:51] LABS: HEMATOCRIT 38.4 % (35.4-49); HEMOGLOBIN 12.3 GM/dL (11.7-16.9); MCHC 32.1 g/dl (32.0-35.9); MEAN CELL VOLUME 84.1 fl (80-96); MEAN PLT VOLUME 9.2 fl (7.5-11.1); PLATELET COUNT 197 K/MM3 (134-434); RBC 4.56 M/mm3 (4.00-5.60); RDW 14.2 % (11.9-15.9); WHITE BLOOD COUNT 7.4 K/mm3 (4.0-10.0)
--- NOTE | 2019-05-14 13:14 | PN ---
Progress Note (short form) - Note Progress Note: GI CONSULT DICTATED - CLEAR LIQUID DIET - PPI - SERIAL CBC - HOLD ASA - NPO MIDNIGHT FOR DIAGNOSTIC EGD ON MON. - SEE FULL CONSULT DICTATED
[2019-05-14 13:22] LABS: INR 1.03 (0.83-1.09); PROTHROMBIN TIME (PATIENT) 12.2 SEC (9.7-13.0)
[2019-05-14 13:25] LABS: ACTIVATED PTT 36.9 SECONDS (25.2-36.5)
[2019-05-14 13:28] LABS: ALBUMIN 3.4 g/dl (3.4-5.0); BILIRUBIN,TOTAL 0.4 mg/dL (0.2-1); BLOOD UREA NITROGEN 42.7 mg/dL (7-18); CALCIUM 8.9 mg/dL (8.5-10.1); POTASSIUM 4.7 mmol/L (3.5-5.1); TOT PROT 6.9 g/dl (6.4-8.2)
[2019-05-14 13:41] LABS: CREATININE 12.4 mg/dL (0.55-1.3)
--- NOTE | 2019-05-14 14:17 | CONSULT ---
Consult - text type - Consultation Consultation Note: Renal Consult for ESRD on HD This is a 44 year old gentleman with history of ESRD on HD, hypertension, renal transplant (2006, now failed) who presented with epigastric pain and bloody stools. Pt reported having red blood in his stools going back to last Monday, developed Abd pain on monday. Was taking ASA 325mg for back pain. Denies any CP, SOB, dizziness or lightheadedness. Last had dialysis on Monday. No leg swelling. Has mild abd pain still. No fever or chills. No diarrhea. PMhx: as above Allergies: iodine, morphine Family Hx: NC Social Hx: No T/A/D ROS: as per HPI, all other pertinent ros negative Vital Signs Temperature 98.3 F 05/14/19 09:00 Pulse Rate 70 05/14/19 09:00 Respiratory Rate 17 05/14/19 09:00 Blood Pressure 148/79 05/14/19 09:00 O2 Sat by Pulse Oximetry (%) 98 05/14/19 09:00 Intake & Output 05/11/19 05/12/19 05/13/19 05/14/19 23:59 23:59 23:59 23:59 Intake Total 0 Balance 0 Weight 83.915 kg 82.781 kg NAD awake and alert neck supple, no JVD RRR, no M/R CTA, no rales or wheeze mild epigastric tenderness, no rebound or guarding no LE edema, no clubbing or cyanosis Right arm AVF CBC, BMP 05/14/19 12:13 05/14/19 12:13 Current Medications Diphenhydramine HCl (Benadryl -) 25 mg PO Q12H PRN PRN Reason: ITHCING Last Admin: 05/14/19 11:12 Dose: 25 mg Gabapentin (Neurontin -) 25 mg PO DAILY REPLACED BY [facility] Pantoprazole Sodium 80 mg/ (Sodium Chloride) 100 mls @ 10 mls/hr IVPB Q10H [facility] Last Admin: 05/14/19 10:50 Dose: 10 mls/hr Labetalol HCl (Normodyne -) 100 mg PO BID [facility] Last Admin: 05/14/19 10:50 Dose: 100 mg Losartan Potassium (Cozaar -) 25 mg PO BID [facility] Last Admin: 05/14/19 10:50 Dose: 25 mg Miscellaneous (Lidoderm Patch Removal) 1 each MC DAILY@2200 REPLACED BY [facility] Last Admin: 05/13/19 23:07 Dose: Not Given Oxycodone HCl (Roxicodone -) 10 mg PO Q6H PRN PRN Reason: PAIN LEVEL 6-10 Last Admin: 05/14/19 04:56 Dose: 10 mg Sevelamer Carbonate (Renvela -) 1,200 mg PO [facility] 44 year old gentleman with history of ESRD on HD, hypertension, renal transplant (2006, now failed) who presented with epigastric pain and bloody stools. #Epigastric pain r/o ulceration vs. gastritis #r/o GI Bleed #ESRD on HD #Hypertension for EGD tomorrow as per GI on PPI gtt for dialysis tomorrow for 3.5 hours no need for MATEUS as Hgb > 12 continue present BP meds including labetalol and losartan Renvela only with meals Dose all meds for intermittent HD Renal diet when tolerated Thank you Noman Pulliam DO
[2019-05-14] MEDS ORDERED: SODIUM CHLORIDE 250 ML IV PRN (14:32)
[2019-05-14] MEDS ORDERED: ACETAMINOPHEN 325 MG TABLET (FP) PO PRN (15:01)
--- NOTE | 2019-05-14 15:50 | CONS ---
DATE OF CONSULTATION: DATE OF DICTATION: 05/14/2019 GASTROINTESTINAL CONSULTATION HISTORY OF PRESENT ILLNESS: The patient is a 44-year-old man with a past medical history of end-stage renal disease on dialysis status post kidney transplant, hypertension, who presents to the emergency room with intermittent abdominal pain located in the epigastrium which began on Monday. He also admits to having some nausea and vomiting and just a couple days prior to admission he had a dark bowel movement. He admits to seeing some bright red blood in his stool over the last couple of months. He has not had a bowel movement since he has been in the hospital, and he has not had any episodes of nausea, vomiting. He denies any hematemesis. He has never had an endoscopy or colonoscopy in the past. He had some back pain and took 3 tablets of aspirin late last week. He does take aspirin daily as a part of his regimen. PAST MEDICAL AND SURGICAL HISTORY: As listed in the HPI. ALLERGIES: CONTRAST and MORPHINE. SOCIAL HISTORY: Does not drink or smoke or use drugs. FAMILY HISTORY: No history of GI or gynecological malignancy. REVIEW OF SYSTEMS: As per the HPI. PHYSICAL EXAMINATION: VITAL SIGNS: Temperature 98, pulse 70, blood pressure 148/79, respiratory rate 17, oxygen saturation 98% on room air . GENERAL: In no acute distress. HEENT: Anicteric sclerae. CARDIOVASCULAR: S1, S2, regular rate and rhythm. LUNGS: Bilaterally clear to auscultation. ABDOMEN: Soft, nontender. EXTREMITIES: No edema. LABORATORY: White blood cell count 7.4, hemoglobin and hematocrit 12/38, MCV 84 , platelet count 197, INR is 1.1. Sodium 135, potassium 4, BUN/creatinine 31/10, total bilirubin 0.3, AST 45, ALT 30, alkaline phosphatase 125, creatinine kinase 1000, troponin 0.06. Amylase and lipase, lipase is 211, amylase not drawn. Stool for occult blood was positive. He did not have any abdominal imaging during this hospitalization. EKG was reviewed, and there were no ST segment changes noted. IMPRESSION: Nausea, vomiting, epigastric abdominal pain with an episode of dark stool, fecal occult blood testing is positive for blood. Gastrointestinal blood loss cannot be excluded secondary to peptic ulcer disease, angiectasias, nsaid gastropathy. There is no sign of an overt GI bleed at this time, the patient is hemodynamically stable. PLAN OF CARE: Hold aspirin. Protonix 40 mg IV daily, trend hemoglobin and hematocrit q.12 while hospitalized. N.p.o. midnight for diagnostic upper endoscopy on Monday. Risks of the procedure explained and benefits in detail including but not limited to perforation, bleeding, infection, and anesthesia and risk of missed lesions. He can be advanced to a clear liquid diet today. DO MARIA LUZ WHIPPLEFMElian/[id number] MTDD
--- NOTE | 2019-05-14 16:53 | CON.CARD ---
Consult Consult Specialty:: cardiology Reason for Consultation:: clearance for EGD - History of Present Illness History of Present Illness: Mr. Love is a 44 yr old man with PMhx of ESRD (MWF, sp hemodialysis today), s/ p kidney transplant several years ago, htn, sleep apnea, s/p CVApresents today for complaint of 4 days of interimttent nonradiating, epigastric pain (now since resolved), had some hematochezia (described as some blood at the end of his BM which was brown without any black/red mixed into stool) a few days ago, today he had an episode of soft non tarry black stool. Pt denies any dizzines, palpitations, n/v currently although he did have several episodes of vomiting this weekend that has since resolved. Pt did note he takes 325mg ASA daily and took 3 tablets of ASA for his back pain last week. Pt with hx chest discomfort, both at rest and with exertion. He was scheuled to undergo a stress MIBI as an outpatient. PMD: Hany Coulter - History Source History Provided By: Patient, Medical Record Limitations to Obtaining History: No Limitations - Past Medical History Cardio/Vascular: Yes: CHF, HTN. No: Deep Vein Thrombosis Pulmonary: Yes: Sleep Apnea (uses machine at night). No: Asthma Gastrointestinal: Yes: GERD (on nexium), Other (rectal bleeding in the past, never had a colonscopy.) Renal/: Yes: Renal Failure, Hematuria (last month, had cystoscopy which was negative, as per pt. No masses seen.), Hemodialysis, Other (Failed Kidney transplant) Additional Medical History: renal osteodystrophy - Past Surgical History Past Surgical History: Yes: AV Fistula/Graft (to LUE multiple times , Right arm AF at wrist), Kidney Transplant - Alcohol/Substance Use Hx Alcohol Use: No History of Substance Use: reports: None - Smoking History Smoking history: Former smoker Have you smoked in the past 12 months: No Aproximately how many cigarettes per day: 3 If you are a former smoker, when did you quit?: 15yrs ago - Social History Usual Living Arrangement: With Child ADL: Independent History of Recent Travel: No Home Medications - Allergies Allergies/Adverse Reactions: Allergies Allergy/AdvReac Type Severity Reaction Status Date / Time Iodinated Contrast- Oral and Allergy Verified 05/13/19 16:13 IV Dye [Iodinated Contrast Media - Oral and] iodine Allergy Verified 05/13/19 16:13 morphine Allergy SEVERE Verified 05/13/19 16:13 Itching - Home Medications Home Medications: Ambulatory Orders Labetalol HCl 100 mg PO BID 01/02/19 Losartan Potassium 25 mg PO BID 01/02/19 Ranitidine HCl [Zantac] 150 mg PO DAILY 01/02/19 Sevelamer Carbonate [Renvela] 1,200 mg PO TID 01/02/19 Alprazolam [Xanax] 0.25 mg PO DAILY PRN 05/13/19 Gabapentin 100 mg PO DAILY 05/13/19 Family Disease History - Family Disease History Family Disease History: Other: Father (HTN), Mother (HTN) - Risk Factors Known Risk Factors: Yes: Hypercholesterolemia, Hypertension, Physical Inactivity Vital Signs: Vital Signs Temperature 98.3 F 05/14/19 09:00 Pulse Rate 70 05/14/19 09:00 Respiratory Rate 17 05/14/19 09:00 Blood Pressure 148/79 05/14/19 09:00 O2 Sat by Pulse Oximetry (%) 98 05/14/19 09:00 - Other Data Labs, Other Data: CBC, BMP 05/14/19 12:13 05/14/19 12:13 INR, PTT INR 1.03 (0.83-1.09) 05/14/19 12:13 Troponin, BNP 05/13/19 17:25 Troponin I 0.06 H Troponin, BNP 05/13/19 17:25 Troponin I 0.06 H Problem List - Problems (1) Anxiety Code(s): F41.9 - ANXIETY DISORDER, UNSPECIFIED (2) Abdominal pain Assessment/Plan: Pt for ECHO in am (for LVEF, wall thickness and motion; valve status) prior to clearance for EGD. Code(s): R10.9 - UNSPECIFIED ABDOMINAL PAIN Qualifiers: Abdominal location: epigastric Qualified Code(s): R10.13 - Epigastric pain (3) ESRD (end stage renal disease) on dialysis Code(s): N18.6 - END STAGE RENAL DISEASE; Z99.2 - DEPENDENCE ON RENAL DIALYSIS (4) GI bleed Assessment/Plan: Planned for EGD.Will obtain ECHo for LVEF. Code(s): K92.2 - GASTROINTESTINAL HEMORRHAGE, UNSPECIFIED Qualifiers: GI bleed type/associated pathology: unspecified gastrointestinal hemorrhage type Qualified Code(s): K92.2 - Gastrointestinal hemorrhage, unspecified (5) Hypertension Assessment/Plan: On labetolol, losartan. Code(s): I10 - ESSENTIAL (PRIMARY) HYPERTENSION Qualifiers: Hypertension type: unspecified Qualified Code(s): I10 - Essential (primary ) hypertension (6) Risk for coronary artery disease between 10% and 20% in next 10 years Assessment/Plan: Pt is scheuled for stress test as an outpatient. BP, lipid, glucose control. Code(s): Z91.89 - [facility] PERSONAL RISK FACTORS, NOT ELSEWHERE CLASSIFIED
[2019-05-14] MEDS: GABAPENTIN 100 MG CAPSULE (FP) PO SCH (17:30)
[2019-05-14] MEDS: SEVELAMER CARBONATE 800 MG TAB (FP) PO SCH ×2 (17:43→17:50)
[2019-05-14] MEDS: oxyCODONE HCL 5 MG TABLET PO PRN (17:45)
[2019-05-14] MEDS: LIDOCAINE PATCH REMOVAL MC SCH (21:33)
[2019-05-14] MEDS ORDERED: PT OWN MED DRAWER 7, Y5N ONE (23:56)
[2019-05-15] MEDS: oxyCODONE HCL 5 MG TABLET PO PRN ×2 (06:17→22:00)
[2019-05-15 08:20] LABS: HEMATOCRIT 35.6 % (35.4-49); HEMOGLOBIN 11.7 GM/dL (11.7-16.9); MCH 27.5 pg (25.7-33.7); MCHC 32.8 g/dl (32.0-35.9); MEAN PLT VOLUME 9.3 fl (7.5-11.1); PLATELET COUNT 199 K/MM3 (134-434); RBC 4.24 M/mm3 (4.00-5.60); RDW 14.3 % (11.9-15.9); WHITE BLOOD COUNT 7.9 K/mm3 (4.0-10.0)
[2019-05-15] MEDS: SEVELAMER CARBONATE 800 MG TAB (FP) PO SCH ×3 (08:25→18:10)
[2019-05-15 08:33] LABS: BLOOD UREA NITROGEN 55.3 mg/dL (7-18); CALCIUM 8.2 mg/dL (8.5-10.1); PHOSPHOROUS 7.5 mg/dL (2.5-4.9); POTASSIUM 4.8 mmol/L (3.5-5.1)
[2019-05-15 08:45] LABS: CREATININE 14.4 mg/dL (0.55-1.3)
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
[2019-05-15] MEDS: PANTOPRAZOLE SODIUM 80 MG in SODIUM CHLORIDE 100 ML IVPB SCH ×3 (11:30→21:00)
--- NOTE | 2019-05-15 12:10 | PN ---
Progress Note (short form) - Note Progress Note: Renal follow up for ESRD on HD Pt seen and examined during dialayiss BP stable, goal UF is 2L access working well pt w/o any acute complaints NPO for planned endoscopy Vital Signs Temperature 97.8 F 05/15/19 07:35 Pulse Rate 66 05/15/19 11:10 Respiratory Rate 18 05/15/19 11:10 Blood Pressure 129/89 05/15/19 11:10 O2 Sat by Pulse Oximetry (%) 98 05/14/19 21:00 Intake & Output 05/12/19 05/13/19 05/14/19 05/15/19 23:59 23:59 23:59 23:59 Intake Total 150 40 Balance 150 40 Weight 83.915 kg 82.781 kg NAD RRR, no M/R CTA, no rales or wheeze mild epigastric tenderness no LE edema, no clubbing or cyanosis Right arm AVF CBC, BMP 05/15/19 07:40 05/15/19 07:40 Current Medications Acetaminophen (Tylenol -) 650 mg PO Q6H PRN PRN Reason: PAIN Diphenhydramine HCl (Benadryl -) 25 mg PO Q12H PRN PRN Reason: ITHCING Last Admin: 05/14/19 11:12 Dose: 25 mg Gabapentin (Neurontin -) 100 mg PO DAILY [facility] Last Admin: 05/14/19 17:30 Dose: Not Given Pantoprazole Sodium 80 mg/ (Sodium Chloride) 100 mls @ 10 mls/hr IVPB Q10H [facility] Last Admin: 05/15/19 00:00 Dose: 10 mls/hr Sodium Chloride (Normal Saline -) 250 mls @ 3,000 mls/hr IV PRN PRN PRN Reason: Hypotension during Dialysis Stop: 05/15/19 14:33 Labetalol HCl (Normodyne -) 100 mg PO BID [facility] Losartan Potassium (Cozaar -) 25 mg PO BID [facility] Last Admin: 05/14/19 21:33 Dose: 25 mg Miscellaneous (Lidoderm Patch Removal) 1 each MC DAILY@2200 [facility] Last Admin: 05/14/19 21:33 Dose: Not Given Oxycodone HCl (Roxicodone -) 5 mg PO Q4H PRN PRN Reason: PAIN LEVEL 6-10 Last Admin: 05/15/19 06:17 Dose: 5 mg Sevelamer Carbonate (Renvela -) 1,600 mg PO TIDCM [facility] Last Admin: 05/15/19 08:25 Dose: Not Given 44 year old gentleman with history of ESRD on HD, hypertension, renal transplant (2006, now failed) who presented with epigastric pain and bloody stools. #Epigastric pain r/o ulceration vs. gastritis #r/o GI Bleed #ESRD on HD #Hypertension tolerated HD well this am for EGD today Zofran for nausea continue present BP meds including labetalol and losartan Renvela only with meals Dose all meds for intermittent HD Renal diet when tolerated Thank you Noman Pulliam DO
[2019-05-15] MEDS ORDERED: ONDANSETRON 4 MG/2 ML VIAL IVPUSH PRN (12:12)
[2019-05-15] MEDS: LABETALOL HCL 100 MG TABLET (FP) PO SCH ×2 (12:25→22:13)
[2019-05-15] MEDS: LOSARTAN POTASSIUM 25 MG TABLET PO SCH ×2 (12:25→22:12)
[2019-05-15] MEDS: GABAPENTIN 100 MG CAPSULE (FP) PO SCH (12:27)
--- NOTE | 2019-05-15 13:09 | PN.GI ---
GI Progress Note Subjective: Pt seen/examined on HD, feels better, states last BM was 2 days ago. No further bleeding. Denies abdominal pain, n/v. Pending echo this afternoon. Asking to eat. - Objective Vital Signs: Vital Signs Temperature 98.6 F 05/15/19 12:00 Pulse Rate 73 05/15/19 12:00 Respiratory Rate 18 05/15/19 12:00 Blood Pressure 149/99 05/15/19 12:00 O2 Sat by Pulse Oximetry (%) 98 05/14/19 21:00 Constitutional: Well Nourished, No Distress, Calm Cardiovascular: Yes: WNL, Regular Rate and Rhythm Respiratory: Yes: WNL, Regular, CTA Bilaterally ...Palpate: Yes: Other (Abd soft, nt, nd) ...Rectal Exam: Yes: Other (scant light brown stool, no blood, no obvious hemorrhoids) Labs: CBC, BMP 05/15/19 07:40 05/15/19 07:40 INR, PTT INR 1.03 (0.83-1.09) 05/14/19 12:13 Problem List - Problems (1) GI bleed Assessment/Plan: 44yo male h/o HTN, ESRD on HD presenting with intermittent epigastric pain and dark stools with mild decline in Hb. Bright blood mixed with stools reported initially then with black stools though ?formed. Denies hard stools/straining previously. No further bleeding. Hemodynamically stable. No blood on rectal exam. -While pt would require endoscopic evaluation, no urgency currently in absence of overt bleeding and stable hemodynamics. As coordination with HD and cardio testing precludes endoscopy today will await completion and schedule tentatively for tomorrow. -Follow up echo and cardiology recommendations particularly in view of prior reported chest pain though pt denies currently -Continue to monitor Hb and for further bleeding -CBC, BMP in am -IV PPI -Clear liquid diet today -NPOpMN -Pending results, pt may also likely require colonoscopy -If overt bleeding with drop in Hb or hemodynamic instability please notify GI for possible more urgent intervention Discussed with cardiology attending Discussed with Dr. Coulter Code(s): K92.2 - GASTROINTESTINAL HEMORRHAGE, UNSPECIFIED Qualifiers: GI bleed type/associated pathology: unspecified gastrointestinal hemorrhage type Qualified Code(s): K92.2 - Gastrointestinal hemorrhage, unspecified
--- NOTE | 2019-05-15 14:03 | ECHO ---
Name: HAM ALVARADO Exam:Adult Echocardiogram Study Date: 05/15/2019 12:33 PM Age: 44 yrs Reason For Study: HTN ERSD WALL MOTION Height: 70 in Weight: 182 lb BSA: 2.0 m2 MMode/2D Measurements & Calculations IVSd: 0.92 cm Ao root diam: 3.1 cm LVIDd: 4.9 cm LA dimension: 3.3 cm LVIDs: 3.3 cm LVPWd: 0.94 cm EDV(Teich): 112.4 ml LVOT diam: 2.2 cm ESV(Teich): 45.6 ml Doppler Measurements & Calculations MV E max donnie: 37.5 cm/sec Ao V2 max: 171.6 cm/sec MV A max donnie: 69.6 cm/sec Ao max P.8 mmHg MV E/A: 0.54 Ao V2 mean: 118.9 cm/sec MV dec time: 0.18 sec Ao mean P.8 mmHg Ao V2 VTI: 30.6 cm APOLINAR(I,D): 2.4 cm2 AI P1/2t: 527.4 msec APOLINAR(V,D): 2.3 cm2 AI max donnie: 344.4 cm/sec LV V1 max P.3 mmHg AI max P.6 mmHg LV V1 mean P.3 mmHg AI dec slope: 191.3 cm/sec2 LV V1 max: 104.1 cm/sec LV V1 mean: 69.7 cm/sec LV V1 VTI: 19.9 cm MR max donnie: 287.8 cm/sec SV(LVOT): 74.2 ml MR max P.1 mmHg TR max donnie: 229.4 cm/sec Med Peak E' Donnie: 6.6 cm/sec TR max P.0 mmHg Med E/e': 5.7 Lat Peak E' Donnie: 11.6 cm/sec Lat E/e': 3.2 Procedure A two-dimensional transthoracic echocardiogram with color flow and Doppler was performed. Left Ventricle The left ventricular size, thickness and function are normal. The left ventricular ejection fraction is normal. E/A reversal consistent with but not diagnostic of poor LV compliance. The left ventricular w all motion is normal. Right Ventricle The right ventricle is normal in size and function. Atria Normal left and right atrial size and function. Mitral Valve There is trivial mitral valve thickening. There is no mitral valve stenosis. There is trace to mild m itral regurgitation. Tricuspid Valve There is mild tricuspid valve thickening. There is no tricuspid stenosis. There is mild tricuspid regurgitation. Right ventricular systolic pressure is normal. Aortic Valve The aortic valve is normal in structure and function. No hemodynamically significant valvular aortic stenosis. Mild to moderate aortic regurgitation. Pulmonic Valve The pulmonic valve is not well visualized. Great Vessels The aortic root is normal size. Pericardium/Pleura There is no pericardial effusion. Interpretation Summary The left ventricular size, thickness and function are normal The left ventricular ejection fraction is normal. The left ventricular wall motion is normal. There is trace to mild mitral regurgitation. There is mild tricuspid regurgitation. Right ventricular systolic pressure is normal. E/A reversal consistent with but not diagnostic of poor LV compliance Mild to moderate aortic regurgitation. MD Leo Pruitt 05/15/2019 02:03 PM
--- NOTE | 2019-05-15 16:21 | PN ---
Progress Note, Physician History of Present Illness: Pt w/o Blood in stool, coffee ground vomiting, abd pain. Pt w/o CP, palpitations, dizziness. - Current Medication List Current Medications: Active Medications Acetaminophen (Tylenol -) 650 mg PO Q6H PRN PRN Reason: PAIN Diphenhydramine HCl (Benadryl -) 25 mg PO Q12H PRN PRN Reason: ITHCING Last Admin: 05/14/19 11:12 Dose: 25 mg Gabapentin (Neurontin -) 100 mg PO DAILY [facility] Last Admin: 05/15/19 12:27 Dose: Not Given Pantoprazole Sodium 80 mg/ (Sodium Chloride) 100 mls @ 10 mls/hr IVPB Q10H [facility] Last Admin: 05/15/19 11:30 Dose: 10 mls/hr Sodium Chloride (Normal Saline -) 250 mls @ 3,000 mls/hr IV PRN PRN PRN Reason: Hypotension during Dialysis Stop: 05/15/19 14:33 Labetalol HCl (Normodyne -) 100 mg PO BID [facility] Last Admin: 05/15/19 12:25 Dose: 100 mg Losartan Potassium (Cozaar -) 25 mg PO BID [facility] Last Admin: 05/15/19 12:25 Dose: 25 mg Miscellaneous (Lidoderm Patch Removal) 1 each MC DAILY@2200 [facility] Last Admin: 05/14/19 21:33 Dose: Not Given Ondansetron HCl (Zofran Injection) 4 mg IVPUSH Q8H PRN PRN Reason: NAUSEA Oxycodone HCl (Roxicodone -) 5 mg PO Q4H PRN PRN Reason: PAIN LEVEL 6-10 Last Admin: 05/15/19 06:17 Dose: 5 mg Sevelamer Carbonate (Renvela -) 1,600 mg PO TIDCM [facility] Last Admin: 05/15/19 12:26 Dose: Not Given - Objective Vital Signs: Vital Signs Temperature 98.6 F 05/15/19 12:00 Pulse Rate 73 05/15/19 12:00 Respiratory Rate 18 05/15/19 12:00 Blood Pressure 149/99 05/15/19 12:00 O2 Sat by Pulse Oximetry (%) 98 05/14/19 21:00 Constitutional: Yes: No Distress, Calm Cardiovascular: Yes: Regular Rate and Rhythm, S1, S2 Respiratory: Yes: Regular, CTA Bilaterally. No: Rales Gastrointestinal: Yes: Normal Bowel Sounds, Soft. No: Tenderness Edema: No Neurological: Yes: Alert, Oriented Labs: CBC, BMP 05/15/19 07:40 05/15/19 07:40 INR, PTT INR 1.03 (0.83-1.09) 05/14/19 12:13 Problem List - Problems (1) GI bleed Code(s): K92.2 - GASTROINTESTINAL HEMORRHAGE, UNSPECIFIED Qualifiers: GI bleed type/associated pathology: unspecified gastrointestinal hemorrhage type Qualified Code(s): K92.2 - Gastrointestinal hemorrhage, unspecified (2) ESRD (end stage renal disease) on dialysis Code(s): N18.6 - END STAGE RENAL DISEASE; Z99.2 - DEPENDENCE ON RENAL DIALYSIS (3) Hypertension Code(s): I10 - ESSENTIAL (PRIMARY) HYPERTENSION Qualifiers: Hypertension type: unspecified Qualified Code(s): I10 - Essential (primary ) hypertension (4) Chest pain Code(s): R07.9 - CHEST PAIN, UNSPECIFIED (5) History of CVA (cerebrovascular accident) Code(s): Z86.73 - PRSNL HX OF TIA (TIA), AND CEREB INFRC W/O RESID DEFICITS Assessment/Plan Pt for EGD tomorrow. Pt condition was d/w Dr Garcia (GI) at bedside. Pt had HD and ECHO today. GI, Renal and Cardio consults are appreciated Pending Cardio decision regarding clearance. AM labs Pt's condition was reviewed with his nurse
[2019-05-15] MEDS ORDERED: PT OWN MED DRAWER 7, Y5N ONE (21:59)
[2019-05-15] MEDS: LIDOCAINE PATCH REMOVAL MC SCH (22:13)
[2019-05-16] MEDS: PANTOPRAZOLE SODIUM 80 MG in SODIUM CHLORIDE 100 ML IVPB SCH (06:25)
[2019-05-16 08:23] LABS: HEMATOCRIT 37.5 % (35.4-49); HEMOGLOBIN 12.2 GM/dL (11.7-16.9); MCH 27.3 pg (25.7-33.7); MCHC 32.6 g/dl (32.0-35.9); MEAN CELL VOLUME 83.8 fl (80-96); MEAN PLT VOLUME 9.3 fl (7.5-11.1); PLATELET COUNT 180 K/MM3 (134-434); RBC 4.47 M/mm3 (4.00-5.60); RDW 14.3 % (11.9-15.9); WHITE BLOOD COUNT 5.7 K/mm3 (4.0-10.0)
[2019-05-16] MEDS: SEVELAMER CARBONATE 800 MG TAB (FP) PO SCH ×3 (08:23→17:23)
[2019-05-16 08:58] LABS: CALCIUM 8.4 mg/dL (8.5-10.1); POTASSIUM 4.1 mmol/L (3.5-5.1)
[2019-05-16 08:59] LABS: CREATININE 11.1 mg/dL (0.55-1.3)
[2019-05-16] MEDS: LABETALOL HCL 100 MG TABLET (FP) PO SCH (11:16)
[2019-05-16] MEDS: oxyCODONE HCL 5 MG TABLET PO PRN (11:16)
[2019-05-16] MEDS: LOSARTAN POTASSIUM 25 MG TABLET PO SCH ×2 (11:17→18:55)
[2019-05-16] MEDS: GABAPENTIN 100 MG CAPSULE (FP) PO SCH (11:17)
--- NOTE | 2019-05-16 11:58 | PN ---
Progress Note, Physician History of Present Illness: Pt w/o N, V, blood in stool, coffee ground vomiting, abd pain. Pt w/o CP, palpitations, dizziness. - Current Medication List Current Medications: Active Medications Acetaminophen (Tylenol -) 650 mg PO Q6H PRN PRN Reason: PAIN Diphenhydramine HCl (Benadryl -) 25 mg PO Q12H PRN PRN Reason: ITHCING Last Admin: 05/14/19 11:12 Dose: 25 mg Gabapentin (Neurontin -) 100 mg PO DAILY [facility] Last Admin: 05/16/19 11:17 Dose: 100 mg Pantoprazole Sodium 80 mg/ (Sodium Chloride) 100 mls @ 10 mls/hr IVPB Q10H [facility] Last Admin: 05/16/19 06:25 Dose: 10 mls/hr Sodium Chloride (Normal Saline -) 250 mls @ 3,000 mls/hr IV PRN PRN PRN Reason: Hypotension during Dialysis Stop: 05/15/19 14:33 Labetalol HCl (Normodyne -) 100 mg PO BID [facility] Last Admin: 05/16/19 11:16 Dose: 100 mg Losartan Potassium (Cozaar -) 25 mg PO BID [facility] Last Admin: 05/16/19 11:17 Dose: 25 mg Miscellaneous (Lidoderm Patch Removal) 1 each MC DAILY@2200 [facility] Last Admin: 05/15/19 22:13 Dose: Not Given Ondansetron HCl (Zofran Injection) 4 mg IVPUSH Q8H PRN PRN Reason: NAUSEA Oxycodone HCl (Roxicodone -) 5 mg PO Q4H PRN PRN Reason: PAIN LEVEL 6-10 Last Admin: 05/16/19 11:16 Dose: 5 mg Sevelamer Carbonate (Renvela -) 1,600 mg PO TIDCM [facility] Last Admin: 05/16/19 08:23 Dose: Not Given - Objective Vital Signs: Vital Signs Temperature 99.3 F 05/16/19 06:10 Pulse Rate 77 05/16/19 06:10 Respiratory Rate 21 H 05/16/19 06:10 Blood Pressure 122/74 05/16/19 06:10 O2 Sat by Pulse Oximetry (%) 98 05/15/19 21:00 Constitutional: Yes: No Distress, Calm Cardiovascular: Yes: Regular Rate and Rhythm, S1, S2 Respiratory: Yes: Regular, CTA Bilaterally. No: Rales Gastrointestinal: Yes: Normal Bowel Sounds, Soft. No: Tenderness Edema: No Neurological: Yes: Alert, Oriented Labs: CBC, BMP 05/16/19 07:15 05/16/19 07:15 INR, PTT INR 1.03 (0.83-1.09) 05/14/19 12:13 - ....Imaging Other: Report Reviewed (ECHO report) Problem List - Problems (1) GI bleed Code(s): K92.2 - GASTROINTESTINAL HEMORRHAGE, UNSPECIFIED Qualifiers: GI bleed type/associated pathology: unspecified gastrointestinal hemorrhage type Qualified Code(s): K92.2 - Gastrointestinal hemorrhage, unspecified (2) ESRD (end stage renal disease) on dialysis Code(s): N18.6 - END STAGE RENAL DISEASE; Z99.2 - DEPENDENCE ON RENAL DIALYSIS (3) Hypertension Code(s): I10 - ESSENTIAL (PRIMARY) HYPERTENSION Qualifiers: Hypertension type: unspecified Qualified Code(s): I10 - Essential (primary ) hypertension (4) Chest pain Code(s): R07.9 - CHEST PAIN, UNSPECIFIED (5) History of CVA (cerebrovascular accident) Code(s): Z86.73 - PRSNL HX OF TIA (TIA), AND CEREB INFRC W/O RESID DEFICITS Assessment/Plan Pt was cleared by cardio for EGD. Pt for EGD today. GI, Renal and Cardio consults are appreciated HD and labs in AM Pt's condition was reviewed with his nurse
--- NOTE | 2019-05-16 12:40 | PN ---
Progress Note (short form) - Note Progress Note: EGD complete. report left in prodedural section of physical chart and to be scanned into [facility] [facility].
--- NOTE | 2019-05-16 12:49 | PN ---
Progress Note (short form) - Note Progress Note: Renal follow up for ESRD on HD Pt seen and examined at the bedside no acute complaints no sob, cp, abd pain, fever or chills Vital Signs Temperature 98.7 F 05/16/19 12:08 Pulse Rate 72 05/16/19 12:08 Respiratory Rate 20 05/16/19 12:08 Blood Pressure 134/96 05/16/19 12:08 O2 Sat by Pulse Oximetry (%) 98 05/15/19 21:00 Intake & Output 05/13/19 05/14/19 05/15/19 05/16/19 23:59 23:59 23:59 23:59 Intake Total 150 518 560 Balance 150 518 560 Weight 83.915 kg 82.781 kg NAD RRR, no M/R CTA, no rales or wheeze mild epigastric tenderness no LE edema, no clubbing or cyanosis Right arm AVF CBC, BMP 05/16/19 07:15 05/16/19 07:15 Current Medications Acetaminophen (Tylenol -) 650 mg PO Q6H PRN PRN Reason: PAIN Diphenhydramine HCl (Benadryl -) 25 mg PO Q12H PRN PRN Reason: ITHCING Last Admin: 05/14/19 11:12 Dose: 25 mg Gabapentin (Neurontin -) 100 mg PO DAILY [facility] Last Admin: 05/16/19 11:17 Dose: 100 mg Sodium Chloride (Normal Saline -) 250 mls @ 3,000 mls/hr IV PRN PRN PRN Reason: Hypotension during Dialysis Stop: 05/15/19 14:33 Labetalol HCl (Normodyne -) 100 mg PO BID [facility] Last Admin: 05/16/19 11:16 Dose: 100 mg Losartan Potassium (Cozaar -) 25 mg PO BID [facility] Last Admin: 05/16/19 11:17 Dose: 25 mg Miscellaneous (Lidoderm Patch Removal) 1 each MC DAILY@2200 [facility] Last Admin: 05/15/19 22:13 Dose: Not Given Ondansetron HCl (Zofran Injection) 4 mg IVPUSH Q8H PRN PRN Reason: NAUSEA Oxycodone HCl (Roxicodone -) 5 mg PO Q4H PRN PRN Reason: PAIN LEVEL 6-10 Last Admin: 05/16/19 11:16 Dose: 5 mg Pantoprazole Sodium (Protonix -) 40 mg PO BID [facility] Sevelamer Carbonate (Renvela -) 1,600 mg PO TIDCM [facility] Last Admin: 05/16/19 08:23 Dose: Not Given 44 year old gentleman with history of ESRD on HD, hypertension, renal transplant (2006, now failed) who presented with epigastric pain and bloody stools. #Epigastric pain r/o ulceration vs. gastritis #r/o GI Bleed #ESRD on HD #Hypertension no acute need for [employer] today, next dialysis planned for tomorrow EGD as per GI continue present BP meds including labetalol and losartan Renvela only with meals Dose all meds for intermittent HD Renal diet when tolerated Thank you Noman Pulliam DO
--- NOTE | 2019-05-16 18:38 | DS ---
Physical Examination Vital Signs: Vital Signs Temperature 98.7 F 05/16/19 13:22 Pulse Rate 66 05/16/19 13:22 Respiratory Rate 10 05/16/19 13:22 Blood Pressure 151/99 05/16/19 13:22 O2 Sat by Pulse Oximetry (%) 100 05/16/19 13:22 Findings/Remarks: See progress note for HPI, ROS, PE. Labs: CBC, BMP 05/16/19 07:15 05/16/19 07:15 Discharge Summary Reason For Visit: GASTROINTESTINAL HEMORRHAGE Current Active Problems Abdominal pain (Acute) Anxiety (Acute) ESRD (end stage renal disease) on dialysis (Acute) GI bleed (Acute) History of CVA (cerebrovascular accident) (Acute) Hypertension (Acute) Risk for coronary artery disease between 10% and 20% in next 10 years (Acute) Procedures: Principal: EGD. ECHO Hospital Course: Pt came to ER for black stool and BRBPR at home, was admitted for further evaluation. Pt was cleared by Cardio (Dr Bryant/ [place]) and had EGD with GI (Dr Bassett), + for duodenal ulcers and gastritis. Pt w/o obvious GIB since admission, wants to have colonoscopy in outpatient settings. Pt to be DC' ed home on PPI, with outpt f/u. Condition: Improved - Instructions Diet, Activity, Other Instructions: resume home diet Referrals: Hany Coulter MD [Primary Care Provider] - (within one week) Baldomero Bassett DO [Staff Physician] - (as scheduled) Leo Pruitt MD [Staff Physician] - (as scheduled) Disposition: HOME - Home Medications Comprehensive Discharge Medication List: Ambulatory Orders See patient discharge instructions instructions
[2019-05-16 18:47] VITALS: BP 149/94; PULSE 78; TEMP 98.6
[2019-05-16] MEDS ORDERED: PANTOPRAZOLE 40 MG TABLET (FP) PO SCH (22:00)
--- NOTE | 2019-05-20 11:52 | PATH ---
Surgical Pathology Report Patient Name: HAM ALVARADO [facility]. Rec. #: [id number] /Age/Gender: 1975 (Age: 44) / M Account: [id number] Location: [address] [place] [address] Taken: 05/16/2019 Received: 05/16/2019 Reported: 05/20/2019 Physicians: Wilian Bassett D.O. Specimen(s) Received A: ANTRUM B: BODY Clinical History GI bleed Postoperative diagnosis: Reflux esophagitis, gastritis, duodenitis, duodenal ulcers Final Diagnosis A. ANTRAL EROSIONS, BIOPSY: MILD CHRONIC ACTIVE GASTRITIS. IMMUNOSTAIN IS NEGATIVE FOR H. PYLORI ORGANISMS. B.. BODY, BIOPSY: MILD CHRONIC ACTIVE GASTRITIS. IMMUNOSTAIN IS NEGATIVE FOR H. PYLORI ORGANISMS. Electronically Signed Belia Valenzuela M.D. Gross Description A. Received in formalin, labeled "biopsy antral erosions" are 2 velázquez, irregular portions of soft tissue averaging 0.4 cm. in greatest dimension. The specimens are submitted in toto in one cassette. B. AReceived in formalin, labeled "biopsy body" are 5 velázquez, irregular portions of soft tissue ranging from 0.2-0.5 cm. in greatest dimension. The specimens are submitted in toto in one cassette. 05/16/2019 [facility]
== END 2019-05-16 20:18 | disposition home or self-care (01) | DRG 383 ==
LOC: JER 16:09 → JERBED 17:58 → J6S 05-14 04:25
PROVIDERS: ADMIT Specialist; ATTEND Specialist
PROC: 5A1D70Z Performance of Urinary Filtration, Intermittent, Less than 6 Hours Per Day (ICD-10-PCS; 2019-05-15)
PROC: 0DB68ZX Excision of Stomach, Via Natural or Artificial Opening Endoscopic, Diagnostic (ICD-10-PCS; 2019-05-16)
PROC: 0DB98ZX Excision of Duodenum, Via Natural or Artificial Opening Endoscopic, Diagnostic (ICD-10-PCS; principal; 2019-05-16 12:15)
DX: K26.9 Duodenal ulcer, unspecified as acute or chronic, without hemorrhage or perforation (principal); N18.6 End stage renal disease; I12.0 Hypertensive chronic kidney disease with stage 5 chronic kidney disease or end stage renal disease; I69.351 Hemiplegia and hemiparesis following cerebral infarction affecting right dominant side; K29.80 Duodenitis without bleeding; K21.0 Gastro-esophageal reflux disease with esophagitis; F41.9 Anxiety disorder, unspecified; K29.70 Gastritis, unspecified, without bleeding; Z99.2 Dependence on renal dialysis
CPT/HCPCS: 36415; 80048; 80053; 82272; 82550; 82553; 83690; 84100; 84443; 84484; 85025; 85027; 85610; 85730; 86803; 86850; 86900; 86901; 87340; 88305-TC; 93005; 93010; 93306-TC; 99283-25

== ENCOUNTER 2019-12-02 11:40 | Emergency (ER) | payer BC, OTHER ==
[2019-12-02 11:46] VITALS: BP 127/93; PULSE 80; TEMP 97.5; BMI 26.5
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
[2019-12-02 14:03] LABS: BASO % 1.3 % (0-2.0); EOS % 2.9 % (0-4.5); HEMATOCRIT 39.6 % (35.4-49); LYMPH % 17.5 % (8-40); MCH 27.5 pg (25.7-33.7); MCHC 32.9 g/dl (32.0-35.9); MEAN CELL VOLUME 83.5 fl (80-96); MEAN PLT VOLUME 8.9 fl (7.5-11.1); MONO % 9.3 % (3.8-10.2); PLATELET COUNT 222 K/MM3 (134-434); RBC 4.75 M/mm3 (4.00-5.60); RDW 14.4 % (11.9-15.9); WHITE BLOOD COUNT 9.1 K/mm3 (4.0-10.0)
[2019-12-02 14:39] LABS: BLOOD UREA NITROGEN 28.5 mg/dL (7-18); CALCIUM 9.4 mg/dL (8.5-10.1); POTASSIUM 3.8 mmol/L (3.5-5.1)
[2019-12-02 15:24] LABS: CREATININE 9.2 mg/dL (0.55-1.3)
== END 2019-12-02 15:32 | disposition home or self-care (01) ==
LOC: JER 11:40
DX: K62.5 Hemorrhage of anus and rectum (principal); I12.0 Hypertensive chronic kidney disease with stage 5 chronic kidney disease or end stage renal disease; N18.6 End stage renal disease; N17.8 Other acute kidney failure; Z99.2 Dependence on renal dialysis; D64.9 Anemia, unspecified; K21.9 Gastro-esophageal reflux disease without esophagitis; Z87.891 Personal history of nicotine dependence; Z91.041 Radiographic dye allergy status; Z88.5 Allergy status to narcotic agent
CPT/HCPCS: 36415; 80048; 82272; 85025; 99282-25

== ENCOUNTER 2020-01-30 08:33 | Day surgery (SDC) | payer OTHER, BC | END 2020-01-30 10:30 | disposition home or self-care (01) | LOC: JASU-ENDO 08:33 | PROVIDERS: ATTEND Internal Medicine Gastroenterology | DX: Z53.8 Procedure and treatment not carried out for other reasons (principal) | CPT/HCPCS: 36415; 84132 ==

== ENCOUNTER 2020-05-12 07:57 | Day surgery (SDC) | payer OTHER, BC ==
[2020-05-05 14:29] VITALS: BMI 26.5
[2020-05-12 08:25] LABS: HEMATOCRIT 37.9 % (35.4-49); HEMOGLOBIN 12.2 GM/dL (11.7-16.9); MCH 26.5 pg (25.7-33.7); MCHC 32.2 g/dl (32.0-35.9); MEAN CELL VOLUME 82.4 fl (80-96); PLATELET COUNT 239 K/MM3 (134-434); RDW 14.3 % (11.9-15.9); WHITE BLOOD COUNT 7.3 K/mm3 (4.0-10.0)
[2020-05-12 08:51] LABS: BLOOD UREA NITROGEN 27.5 mg/dL (7-18); CALCIUM 8.8 mg/dL (8.5-10.1)
[2020-05-12 08:58] LABS: CREATININE 11.5 mg/dL (0.55-1.3)
[2020-05-12 09:49] VITALS: TEMP 97.6
[2020-05-12 09:59] VITALS: PULSE 78
[2020-05-12 10:24] VITALS: BP 113/79
== END 2020-05-12 10:56 | disposition home or self-care (01) ==
LOC: JASU-ENDO 07:57
PROVIDERS: ATTEND Internal Medicine Gastroenterology
PROC: 0DJD8ZZ Inspection of Lower Intestinal Tract, Via Natural or Artificial Opening Endoscopic (ICD-10-PCS; principal; 2020-05-12 09:00)
DX: K64.8 Other hemorrhoids (principal)
CPT/HCPCS: 36415; 80048; 85027

== ENCOUNTER 2020-05-19 08:49 | Day surgery (SDC) | payer OTHER, BC ==
[2020-05-18 08:36] VITALS: BMI 25.8
[2020-05-19 09:43] LABS: BLOOD UREA NITROGEN 31.6 mg/dL (7-18); CALCIUM 9.5 mg/dL (8.5-10.1); POTASSIUM 4.8 mmol/L (3.5-5.1)
[2020-05-19 09:50] LABS: CREATININE 11.7 mg/dL (0.55-1.3)
[2020-05-19 10:14] VITALS: TEMP 98
[2020-05-19 10:57] VITALS: BP 118/82; PULSE 67
--- NOTE | 2020-05-26 15:47 | PATH ---
Surgical Pathology Report Patient Name: HAM ALVARADO Med. Rec. #: [id number] /Age/Gender: 1975 (Age: 45) / M Account: [id number] Location: [facility] Taken: 05/19/2020 Received: 05/19/2020 Reported: 05/26/2020 Physicians: Wilian Bassett D.O. Specimen(s) Received DUODENUM Clinical History GERD Postoperative diagnosis: Duodenitis rule out amyloidosis Final Diagnosis DUODENAL BIOPSY: DUODENAL MUCOSA WITH EROSION, MARKED ACUTE AND CHRONIC INFLAMMATION WITH REGENERATIVE CHANGE. Note: Congo red stain to evaluate amyloid deposits is pending. An addendum report to follow. Electronically Signed Millie Maldonado M.D. Addendum Reported: 05/27/2020 Addendum Diagnosis Congo Red stain for amyloid interpretation: NEGATIVE. Congo red stain performed and interpreted at this [facility], [place], [place] ([id number]). See [facility] report for details. Millie Maldonado M.D. Gross Description Received in formalin, labeled "duodenum biopsy" is a velázquez, irregular portion of soft tissue measuring 0.3 cm. in greatest dimension. The specimen is submitted in toto in one cassette. /05/19/202005/19/2020
== END 2020-05-19 11:10 | disposition home or self-care (01) ==
LOC: JASU-ENDO 08:49
PROVIDERS: ATTEND Internal Medicine Gastroenterology
PROC: 0DB98ZX Excision of Duodenum, Via Natural or Artificial Opening Endoscopic, Diagnostic (ICD-10-PCS; principal; 2020-05-19 10:00)
DX: K29.80 Duodenitis without bleeding (principal); K44.9 Diaphragmatic hernia without obstruction or gangrene
CPT/HCPCS: 36415; 80048; 88305-TC